=== PATIENT | female | born 1960 | race Caucasian/White ===

== ENCOUNTER → 2016-10-19 | Outpatient (CLI) | payer OTHER ==
[~2016-10-19] MED LIST: HYDROCHLOROTHIA25 MG PO; LIPITOR TAB 2020 MG PO; METOPROLOL TART25 MG PO; ZANTAC 150 MG150 MG PO
== END ==
LOC: HEART 5 10-15 09:30
DX: R00.0 Tachycardia, unspecified (principal); R00.2 Palpitations; I51.7 Cardiomegaly; I08.1 Rheumatic disorders of both mitral and tricuspid valves; I27.2 Other secondary pulmonary hypertension
CPT/HCPCS: 93306

== ENCOUNTER → 2020-11-25 | Outpatient (CLI) | payer OTHER ==
[~2020-11-25] MED LIST changes: +LOPRESSOR50 MG PO; +LOSARTAN POTASS50 MG PO; +OMEGA 3 FISH O1 EACH PO; +PROTONIX40 MG PO; +VITAMIN D32000 UNI1 PO; +ZOLOFT25 MG PO
== END ==
LOC: KOH-I 13:15
DX: M50.30 Other cervical disc degeneration, unspecified cervical region (principal)
CPT/HCPCS: 72125

== ENCOUNTER → 2021-02-27 | Outpatient (CLI) | payer OTHER | LOC: US 09:20 | DX: R74.8 Abnormal levels of other serum enzymes (principal); R80.9 Proteinuria, unspecified; K76.0 Fatty (change of) liver, not elsewhere classified | CPT/HCPCS: 76700 ==

== ENCOUNTER 2021-11-11 10:38 | Emergency (ER) | payer OTHER ==
[2021-11-11 10:56] LABS: HEMOGLOBIN 16.7 gm/dl (12.3-15.3); RED BLOOD COUNT 5.15 M/UL (4.00-5.10); WHITE BLOOD COUNT 9.2 K/UL (4.5-11.0)
[2021-11-11 11:27] LABS: BUN/CREATININE RATIO 25 (0-10)
== END 2021-11-11 16:23 | disposition home or self-care (01) ==
LOC: ER1 10:38
PROVIDERS: Emergency Medicine
DX: I20.8 Other forms of angina pectoris (principal); F41.9 Anxiety disorder, unspecified; E11.9 Type 2 diabetes mellitus without complications; I10 Essential (primary) hypertension; Z90.49 Acquired absence of other specified parts of digestive tract; F17.290 Nicotine dependence, other tobacco product, uncomplicated
CPT/HCPCS: 71045; 80053; 82550; 82553; 84484; 85025; 93005; 99285